=== PATIENT | male | born 1950 | race Caucasian/White ===

== ENCOUNTER 2018-03-15 09:34 | Day surgery (SDC) | payer OTHER ==
[2018-02-20 12:29] LABS: BASOPHILS # (AUTO) 0.1 K/uL (0.00-0.22); BASOPHILS % (AUTO) 1.1 % (0.0-2.0); EOSINOPHILS # (AUTO) 0.1 K/uL (0-0.4); EOSINOPHILS % (AUTO) 1.5 % (0.0-4.0); HEMATOCRIT 47.6 % (36-52); HEMOGLOBIN 15.4 g/dL (12.0-18.0); LYMPHOCYTES # (AUTO) 2.1 K/uL (2.0-11.5); LYMPHOCYTES % (AUTO) 34.8 % (20.5-51.1); MEAN CORPUSCULAR HEMOGLOBIN 27 pg (27-31); MEAN CORPUSCULAR HGB CONC 32 g/dL (33-37); MEAN CORPUSCULAR VOLUME 82.3 fL (80-94); MONOCYTES # (AUTO) 0.7 K/uL (0.8-1.0); MONOCYTES % (AUTO) 11.2 % (1.7-9.3); NEUTROPHILS # (AUTO) 3.1 K/uL (1.8-7.7); NEUTROPHILS % (AUTO) 51.4 % (42.2-75.2); PLATELET COUNT (AUTO) 207 K/uL (140-450); RED BLOOD CELL COUNT(AUTO) 5.78 MIL/uL (4.20-6.10); RED CELL DISTRIBUTION WIDTH 14.3 % (11.6-13.7)
[2018-02-20 12:47] LABS: ALBUMIN 3.7 g/dL (3.4-5.0); ANION GAP 8.4 (8-16); POTASSIUM 4.4 mmol/L (3.5-5.1); TOTAL BILIRUBIN 0.4 mg/dL (0.0-1.0)
[2018-03-13 11:24] LABS: BASOPHILS # (AUTO) 0.1 K/uL (0.00-0.22); BASOPHILS % (AUTO) 0.9 % (0.0-2.0); EOSINOPHILS # (AUTO) 0.1 K/uL (0-0.4); EOSINOPHILS % (AUTO) 1.5 % (0.0-4.0); HEMATOCRIT 46.3 % (36-52); LYMPHOCYTES # (AUTO) 2.2 K/uL (2.0-11.5); LYMPHOCYTES % (AUTO) 35.8 % (20.5-51.1); MEAN CORPUSCULAR HEMOGLOBIN 27 pg (27-31); MEAN CORPUSCULAR HGB CONC 32 g/dL (33-37); MEAN CORPUSCULAR VOLUME 82.5 fL (80-94); MONOCYTES # (AUTO) 0.6 K/uL (0.8-1.0); MONOCYTES % (AUTO) 9.8 % (1.7-9.3); NEUTROPHILS # (AUTO) 3.2 K/uL (1.8-7.7); PLATELET COUNT (AUTO) 202 K/uL (140-450); RED BLOOD CELL COUNT(AUTO) 5.62 MIL/uL (4.20-6.10); RED CELL DISTRIBUTION WIDTH 14.3 % (11.6-13.7); WHITE BLOOD COUNT (AUTO) 6.1 K/uL (4.8-10.8)
[2018-03-13 11:37] LABS: ALBUMIN 3.6 g/dL (3.4-5.0); ANION GAP 10.6 (8-16); CARBON DIOXIDE 28.5 mmol/L (21-32); POTASSIUM 4.1 mmol/L (3.5-5.1); TOTAL BILIRUBIN 0.4 mg/dL (0.0-1.0)
[~2018-03-15] VITALS: Ht 165.1 cm; Wt 73.5 kg
[2018-03-15] MEDS ORDERED: CEFAZOLIN SODIUM 1 GM/D5W PM 50 ML IV SCH (10:15)
[2018-03-15] MEDS ORDERED: MIDAZOLAM 2 MG/2 ML VIAL ONE (12:00)
[2018-03-15] MEDS ORDERED: fentaNYL 0.05 MG/ML VIAL ONE (12:01)
[2018-03-15] MEDS ORDERED: MEPERIDINE 50 MG/ML SYR ONE (12:01)
[2018-03-15] MEDS ORDERED: ONDANSETRON 4 MG/2 ML VIAL ONE (12:10)
[2018-03-15] MEDS ORDERED: SEVOFLURANE 250 ML BTL INH ONE (12:10)
[2018-03-15] MEDS ORDERED: PROPOFOL 200 MG/20 ML VIAL IV ONE (12:10)
[2018-03-15] MEDS ORDERED: KETOROLAC 30 MG/ML VIAL ONE (12:10)
[2018-03-15] MEDS ORDERED: DEXAMETHASONE 4 MG/ML VIAL ONE (12:10)
[2018-03-15] MEDS ORDERED: LIDOCAINE 2% 100 MG/5 ML UJET TP ONE (12:16)
[2018-03-15] MEDS ORDERED: BUPIVACAINE-MPF/EPI 0.25% 30 ML VIAL INJ ONE (12:16)
[2018-03-15] MEDS ORDERED: LACTATED RINGERS 1,000 ML IV SCH (13:06)
[2018-03-15] MEDS ORDERED: MEPERIDINE 25 MG/ML SYR IVP PRN (13:10)
[2018-03-15] MEDS ORDERED: HYDROmorphone 1 MG/ML AMP IVP PRN ×2 (13:10→13:55)
[2018-03-15] MEDS ORDERED: diphenhydrAMINE 50 MG/ML VIAL IVP PRN (13:10)
[2018-03-15] MEDS ORDERED: ONDANSETRON 4 MG/2 ML VIAL IVP PRN (13:10)
[2018-03-15] MEDS ORDERED: NACL 0.9% 1,000 ML IV SCH (13:53)
[2018-03-15] MEDS ORDERED: ONDANSETRON 4 MG/2 ML VIAL IV PRN (13:55)
[2018-03-15] MEDS ORDERED: MORPHINE SULFATE 4 MG/ML SYR IV PRN (13:55)
[2018-03-15] MEDS ORDERED: ACETAMINOPHEN 325 MG TAB PO PRN (13:55)
[2018-03-15] MEDS ORDERED: HYDROcodone/APAP 5/325 MG 1 TAB TAB PO PRN (13:55)
[2018-03-15] MEDS ORDERED: MORPHINE SULFATE 2 MG/ML SYR IVP PRN (13:55)
== END 2018-03-15 15:13 | disposition home or self-care (01) ==
LOC: MDS 09:34 → MMU 09:35 → MDS 15:13
PROVIDERS: ATTEND Surgery
DX: D12.8 Benign neoplasm of rectum (principal); M19.90 Unspecified osteoarthritis, unspecified site; I10 Essential (primary) hypertension; F17.210 Nicotine dependence, cigarettes, uncomplicated
CPT/HCPCS: 36415; 45385; 46020; 71045; 80053; 85025; 88305; 93005; J0690; J1100; J1885; J2175; J2250; J2405; J2704; J3010; J3490; J7120; J7060